=== PATIENT | male | born 1980 | race Caucasian/White ===

== ENCOUNTER 2017-12-09 23:38 | Emergency (ER) | payer OTHER ==
[~2017-12-09] VITALS: Ht 172.7 cm; Wt 89.8 kg
[~2017-12-09 23:38] MED LIST: ACHD5005 PO; CEPH500C PO; HYDR-1231 PO; NAPR-243 PO; PRD20T PO
--- OUTSIDE RECORDS SUMMARY | 2017-12-09 23:46 | XMS REPORT ---
Author Author GLORIA LOVELACE [facility] Address Unknown Care Team Providers Care Scientific Associate Name Role Phone [place] GLORIA Unavailable PROBLEMS Type Condition ICD9-CM Code [id number] Code Onset Dates Condition Status SNOMED Code Problem Pityriasis versicolor 111.0 Active [id number] ALLERGIES No Known Allergies SOCIAL HISTORY Never Assessed PLAN OF CARE Activity Details Follow Up 1 Week Reason:#19-te VITAL SIGNS Height 68 in 2016-04-28 Blood pressure systolic 152 mmHg 2016-04-28 Blood pressure diastolic 105 mmHg 2016-04-28 MEDICATIONS Medication Instructions Dosage Frequency Start Date End Date Duration Status Amoxicillin 500 MG Orally three times a day 1 tablet 8h Apr, Apr, 7 days Active RESULTS No Results PROCEDURES Procedure Date Ordered Result Body Site LTD ORAL EVALUATION - PROBLEM FOCUS Apr 28, 2016 INTRAORL-PERIAPICAL 1 FILM [id number] Apr 28, 2016 IMMUNIZATIONS No Known Immunizations MEDICAL (GENERAL) HISTORY Type Description Date Medical History bronchitis Medical History Seizures Medical History Ulcers Medical History Blood transfusion Medical History thyroid problems
--- OUTSIDE RECORDS SUMMARY | 2017-12-09 23:46 | XMS REPORT | Continuity of Care Document ---
Author Author [facility] Organization [facility] Address Unknown Phone Unavailable Care Team Providers Care Periodontist Name Role Phone [facility] OF Insurance Providers Payer Name Policy Number Subscriber Name Relationship Self Pay Jeremy Reilly 01 Self / Same As Patient Advance Directives Directive Response Recorded Date Advance Directives N 12/16/12 9:49pm Organ Donor Y 12/16/12 9:49pm Problems No Known Problems or Medical conditions. Social History History Response Recorded Date/Time Alcohol Use Denies Use 12/16/12 9:49pm Recreational Drug Use N 12/16/12 9:49pm Allergies, Adverse Reactions, Alerts Allergen Type Severity Reaction Last Updated NKANo Known Allergies Allergy Unknown 02/20/06 Medications Medication Dose Units Route Sig Qty Days Prednisone 40 Mg PO BID 4 Response Recorded Date/Time Status not known Unknown Results No Known Relevant Diagnostic Tests, Laboratory Data and/or Discharge Summary. Procedures Procedure Code Date COLONOSCOPY 45.23 02/23/06 ESOPHAGOGASTRODUODENOSCOPY [EGD] W/CLOSED BIOPSY 45.16 02/21/06 UPPER GI ENDOSCOPY BIOPSY [id number] 03/09/06 Encounters Encounter Location Date/Time Departed Emergency Room [facility] 08/23 9:42pm Discharged Inpatient [facility] 12: 00am
--- OUTSIDE RECORDS SUMMARY | 2017-12-09 23:46 | XMS REPORT | Continuity of Care Document ---
Author Author [facility] Organization [facility] Address Unknown Phone Unavailable Care Team Providers Care Sales Officer Name Role Phone [facility] OF Insurance Providers Payer Name Policy Number Subscriber Name Relationship Self Pay Jeremy Reilly 01 Self / Same As Patient Advance Directives Directive Response Recorded Date Advance Directives N 08/23/12 11:11pm Problems No Known Problems or Medical conditions. Social History History Response Recorded Date/Time Alcohol Use Denies Use 08/23/12 11:11pm Recreational Drug Use N 08/23/12 11:11pm Allergies, Adverse Reactions, Alerts Allergen Type Severity Reaction Last Updated NKANo Known Allergies Allergy Unknown 02/20/06 Medications Medication Dose Units Route Sig Qty Days Naproxen (Naprosyn) 1 Each PO BID PRN 20 Hydrocodone Bit/Acetaminophen (Hydrocodon-Acetaminophen 5-325) 1 - 2 Each PO Q6H PRN 20 Response Recorded Date/Time Status not known Unknown Results No Known Relevant Diagnostic Tests, Laboratory Data and/or Discharge Summary. Procedures Procedure Code Date COLONOSCOPY 45.23 02/23/06 ESOPHAGOGASTRODUODENOSCOPY [EGD] W/CLOSED BIOPSY 45.16 02/21/06 UPPER GI ENDOSCOPY BIOPSY [id number] 03/09/06 Encounters Encounter Location Date/Time Departed Emergency Room [facility] 11:01pm Discharged Inpatient [facility] 12: 00am
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
--- NOTE | 2017-12-10 01:39 | ED Lower Extremity ---
General Stated Complaint: LEFT FOOT PAIN Source: patient Exam Limitations: no limitations History of Present Illness Date Seen by Provider: Dec 10, 2017 Time Seen by Provider: 01:25 Initial Comments PT ARRIVES VIA POV C/O LEFT FOOT INJURY STATES HE WAS LOADING METAL DRUMS ( WEIGHING APPROXIMATELY 50 LBS ) ONTO A TRUCK AND ONE ROLLED OFF THE BACK OF THE TRUCK HE WAS LOADING IT, AND LANDED ON HIS LEFT FOOT/ANKLE AREA OCCURRED Monday AROUND 10:30 AM. 12/08/17--WORKS AT [employer] REPORTED TO PLANNER AT THE TIME, BUT DID NOT SEEK CARE UNTIL TONIGHT. STATES IT DID NOT HURT TOO BAD "UNTIL IT GOT TO WHERE I CAN'T WALK" ( PT AMBULATED INTO ER AND BACK INTO ROOM ON HIS OWN) NO PARESTHESIAS OR MOTOR DEFICITS NO PRIOR INJURY TO THIS FOOT PCP: LISA Allergies and Home Medications Allergies Coded Allergies: NKANo Known Allergies (Verified Allergy, Unknown, 02/20/06) Home Medications Naproxen 500 Mg Tablet, 500 MG PO BID Prescribed by: JAYY STEELE on 12/10/17 0201 Patient Home Medication List Home Medication List Reviewed: Yes Review of Systems Constitutional: no symptoms reported Musculoskeletal: see HPI Skin: no symptoms reported Psychiatric/Neurological: No Symptoms Reported Past Meuwnok-Joltnd-Nrdynu Hx Patient Social History Alcohol Use: Occasionally Uses Recreational Drug Use: No Smoking Status: Current Everyday Smoker Type Used: Cigarettes Recent Foreign Travel: No Contact w/Someone Who Travel: No Recent Hopitalizations: No Immunizations Up To Date Tetanus Booster (TDap): More than 5yrs Seasonal Allergies Seasonal Allergies: No Past Medical History Surgeries: No Respiratory: No Cardiac: No Neurological: No Genitourinary: No Gastrointestinal: No Musculoskeletal: Yes Arthritis, Chronic Back Pain HEENT: No Cancer: No Psychosocial: No Integumentary: No Blood Disorders: No Adverse Reaction/Blood Tranf: No Family Medical History No Pertinent Family Hx Physical Exam Vital Signs Vital Signs - First Documented 12/10/17 12/10/17 01:23 02:22 Temp 96.7 Pulse 67 Resp 17 B/P (MAP) 140/92 (108) Pulse Ox 97 O2 Delivery Room Air Capillary Refill : Height, Weight, BMI Height: 5'8" Weight: 198lbs. oz. 89.126531mk; 30.10 BMI Method:Stated General Appearance: WD/WN, no apparent distress, other (AMBULATES IN ON OWN ) Legs: left leg normal inspection Knees: left knee normal inspection Ankles: left ankle other (MILD TENDERNESS TO ANTERIOR ASPECT OF LEFT ANKLE) Feet: left foot bone tenderness (TENDERESS TO TOP OF FOOT), left foot ecchymosis ([place] TO TOP OF FOOT), left foot limited range of motion, left foot pain, left foot soft tissue tenderness, left foot swelling (MILD SWELLING TO TOP OF FOOT), left foot other Neurologic/Tendon: normal sensation, normal motor functions, normal tendon functions Neurologic/Psychiatric: credit underwriter II-XII nml as tested, no motor/sensory deficits, alert, normal mood/affect, oriented x 3 Skin: normal color, warm/dry Procedures/Interventions Suture Size: 5-0 Splinting and Joint Reduction : Rashel wrap: Yes Splints: Post Op Shoe Progress/Results/Core Measures Results/Orders My Orders Orders - JAYY STEELE DO Foot, Left, 3 Views (12/10/17 01:28) Ankle, Left, 3 Views (12/10/17 01:28) Post-Op Shoe (12/10/17 01:58) Rx-Naproxen (Rx-Naprosyn) (12/10/17 01:58) Rashel Bandage (12/10/17 02:19) Rx-Naproxen (Rx-Naprosyn) (12/10/17 02:11) Vital Signs/I&O 12/10/17 12/10/17 01:23 02:22 Temp 96.7 96.7 Pulse 67 68 Resp 17 17 B/P (MAP) 140/92 (108) 140/90 Pulse Ox 97 O2 Delivery Room Air Room Air Comment XRAYS LEFT FOOT AND ANKLE--NO ACUTE BONY INJURY, PENDING RADIOLOGIST REVIEW Departure Impression Primary Impression: Contusion of left foot Disposition: HOME, SELF-CARE Condition: Stable Departure-Patient Inst. Referrals: [facility] (PCP/Family) Primary Care Physician Patient Instructions: Contusion (DC) Add. Discharge Instructions: WEAR POST OP SHOE NEEDED FOR PAIN ICE TO AREA AT 20 MINUTE INTERVALS ELEVATE FOOT MUCH POSSIBLE FOLLOW UP WITH OCCUPATIONAL HEALTH ON MONDAY FOR FURTHER CARE Scripts Naproxen (Naproxen) 500 Mg Tablet 500 MG PO BID, #20 TAB Prov: JAYY STEELE DO 12/10/17 Images Extremities-Lower 1 - Mild, Swelling, Tenderness, Other-See Progress Note Progress SMALL AREA OF FAINT BRUISING TO TOP OF LEFT FOOT JAYY STEELE DO Dec 10, 2017 01:39
[2017-12-10] MEDS ORDERED: RX-NAPROXEN (NAPROSYN) 250 MG TAB PPK#4 PO STA (01:58)
[2017-12-10] MEDS ORDERED: NAPR-915 PO (02:01)
[2017-12-10] MEDS ORDERED: RX-NAPROXEN (NAPROSYN) 250 MG TAB PPK#4 PO ONE (02:11)
[2017-12-10 02:22] VITALS: BP 140/90
--- NOTE | 2017-12-10 07:25 | Diagnostic Imaging Report ---
INDICATION: Pain. 3 views of left ankle were obtained. FINDINGS: The alignment is normal. The plafonds and talar dome are intact. Ankle mortise is symmetric. There is no fracture or dislocation. Soft tissues are unremarkable. IMPRESSION: No focal abnormality in the left ankle. Dictated by: Dictated on workstation # [id number]
--- NOTE | 2017-12-10 07:26 | Diagnostic Imaging Report ---
Indication: Pain. Three views were obtained. Findings: The alignment is normal. There is fracture or dislocation. Soft tissues are unremarkable. Impression: No acute fracture or dislocation. Dictated by: Dictated on workstation # [id number]
== END 2017-12-10 02:24 | disposition home or self-care (01) ==
LOC: EDUNIT# 23:38 → ER 23:40
DX: S90.32XA Contusion of left foot, initial encounter (principal); F17.210 Nicotine dependence, cigarettes, uncomplicated; W22.09XA Striking against other stationary object, initial encounter; Y92.59 Other trade areas as the place of occurrence of the external cause; Y99.0 Civilian activity done for income or pay
CPT/HCPCS: 73610; 73630

== ENCOUNTER 2019-02-18 22:42 | Emergency (ER) | payer SELFPAY ==
[~2019-02-18] VITALS: Ht 172.2 cm; Wt 93.0 kg
[~2019-02-18 22:42] MED LIST changes: +NAPR-915 PO
--- NOTE | 2019-02-19 00:59 | NUR ---
Received report from AIRAM Gavin at this time to assume care of pt.
[2019-02-19] MEDS ORDERED: AMOX500C2 PO (01:05)
--- NOTE | 2019-02-19 01:08 | ED EENT ---
History of Present Illness General Chief Complaint: Dental Problems/Pain Stated Complaint: POSS RT SIDE DENTAL PAIN Nursing Triage Note: PT AMBULATE TO [facility] WITH C/O RIGHT SIDED DENTAL PAIN X1 WEEK. PT REPORTS THAT IT IS "THROWING MY EQUILIBRIUM OFF". Source: patient Exam Limitations: no limitations History of Present Illness Date Seen by Provider: Feb 19, 2019 Time Seen by Provider: 00:54 Initial Comments This 38-year-old man presents to the emergency room with complaints of pain in the right maxilla shooting down toward his neck and toward the right ear he believes this is coming from his teeth. He denies any fever. He has not taken any medications for this and has not seen the dentist. Pain is been present for a week and is escalating. Allergies and Home Medications Allergies Coded Allergies: JOSEANo Known Allergies (Verified Allergy, Unknown, 02/20/06) Home Medications Amoxicillin 500 Mg Capsule, 1,000 MG PO BID Prescribed by: SAI TAPIA on 02/19/19 0105 Naproxen 500 Mg Tablet, 500 MG PO BID Prescribed by: JAYY STEELE on 12/10/17 0201 Patient Home Medication List Home Medication List Reviewed: Yes Review of Systems Review of Systems Constitutional: no symptoms reported Eyes: No Symptoms Reported Ears: No Symptoms Reported Nose: no symptoms reported Mouth: see HPI Throat: no symptoms reported Respiratory: no symptoms reported Cardiovascular: no symptoms reported Gastrointestinal: no symptoms reported Musculoskeletal: no symptoms reported Skin: no symptoms reported Neurological: No Symptoms Reported Past Iwxglap-Lmknfn-Jnzgda Hx Past Med/Social Hx: Reviewed Nursing Past Med/Soc Hx Patient Social History Alcohol Use: Denies Use Recreational Drug Use: No Smoking Status: Former Smoker Type Used: Cigarettes Former Smoker, Quit: Feb 05, 2019 2nd Hand Smoke Exposure: No Recent Foreign Travel: No Contact w/Someone Who Travel: No Recent Infectious Disease Expo: No Recent Hopitalizations: No Physical Abuse: No Sexual Abuse: No Mistreated: No Fear: No Immunizations Up To Date Tetanus Booster (TDap): Less than 5yrs Seasonal Allergies Seasonal Allergies: No Past Medical History Surgeries: Yes Abdominal (EGD and colonoscopy) Respiratory: No Cardiac: No Neurological: No Genitourinary: No Gastrointestinal: Yes Ulcer Musculoskeletal: Yes Arthritis, Chronic Back Pain Endocrine: No HEENT: No Cancer: No Psychosocial: No Integumentary: No Blood Disorders: No Adverse Reaction/Blood Tranf: No Family Medical History No Pertinent Family Hx Physical Exam Vital Signs Vital Signs - First Documented 02/18/19 02/19/19 23:16 01:20 Temp 36.9 Pulse 80 Resp 18 B/P (MAP) 183/96 (125) Pulse Ox 100 O2 Delivery Room Air Height, Weight, BMI Height: 5'8" Weight: 198lbs. oz. 89.695936ls; 31.00 BMI Method:Stated General Appearance: WD/WN, mild distress Eyes: bilateral eye normal inspection, bilateral eye PERRL, bilateral eye EOMI Ears: bilateral ear auricle normal, bilateral ear canal normal, bilateral ear TM normal Nose: normal inspection Mouth/Throat: pharynx normal, other (numerous severely decayed teeth. No overt inflammatory process or abscess.) Neck: normal inspection Cardiovascular: regular rate, rhythm, no edema, no murmur Respiratory: lungs clear, normal breath sounds, no respiratory distress Neurologic/Psychiatric: barrel raiser II-XII nml as tested, no motor/sensory deficits, alert, normal mood/affect, oriented x 3 Skin: normal color, warm/dry Procedures/Interventions Suture Size: 5-0 Progress/Results/Core Measures Results/Orders My Orders Orders - SAI HARVEY MD Amoxicillin Capsule (Polymox Capsule) (02/19/19 01:15) Vital Signs/I&O Blood Pressure Mean: 125 POS Progress Progress Note : Progress Note Patient was started on amoxicillin in the emergency room. Since he has not yet tried any medications, he was advised to start with ougs-bti-brnzjeh ibuprofen and Tylenol. See discharge instructions. Departure Impression Primary Impression: Dental decay Additional Impression: Pain, dental Disposition: HOME, SELF-CARE Condition: Stable Departure-Patient Inst. Decision time for Depature: 01:03 Referrals: [facility] (PCP/Family) Primary Care Physician Patient Instructions: Dental Pain, Tooth Decay, Adult (DC) Add. Discharge Instructions: Complete your antibiotics as prescribed and see a dentist as soon as possible. You may take ibuprofen up to 600 mg every 6 hours as needed and/or Tylenol (acetaminophen) up to 1000 mg every 6 hours as needed. [place] your teeth gently with a soft bristle toothbrush at least twice daily. If tolerated, also rinse with antiseptic mouthwash. Return to care if you have worsening symptoms or develop new symptoms such as fever. All discharge instructions reviewed with patient and/or family. Voiced understanding. Scripts Amoxicillin (Amoxicillin) 500 Mg Capsule 1000 MG PO BID, #40 CAP 0 Refills Prov: SAI HARVEY MD 02/19/19 SAI HARVEY MD Feb 19, 2019 01:08 POS
[2019-02-19] MEDS ORDERED: AMOXICILLIN 500 MG (POLYMOX) CAP PO ONE (01:15)
[2019-02-19 01:20] VITALS: BP 183/96
== END 2019-02-19 01:27 | disposition home or self-care (01) ==
LOC: EDUNIT# 22:42 → ER 22:45
DX: K02.9 Dental caries, unspecified (principal); Z87.891 Personal history of nicotine dependence
CPT/HCPCS: 99283

== ENCOUNTER 2019-03-03 09:27 | Emergency (ER) | payer SELFPAY ==
[~2019-03-03] VITALS: Ht 172.7 cm; Wt 90.7 kg
[~2019-03-03 09:27] MED LIST changes: +AMOX500C2 PO
--- NOTE | 2019-03-03 09:40 | ED Upper Extremity ---
General Chief Complaint: Upper Extremity Stated Complaint: L HAND INJ/SWELLING Source: patient Exam Limitations: no limitations History of Present Illness Date Seen by Provider: Mar 03, 2019 Time Seen by Provider: 09:26 Initial Comments Patient is a pleasant left-handed gentleman who presents to ER by private conveyance because of swelling and pain and limited mobility in his left hand. Approximate 1700 yesterday about 16 hours ago he was working on a vehicle in his left hand slipped off a tool hitting the dorsum of his hand against the fender well. He denies any numbness tingling weakness or previous fracture/surgery. No diabetes or blood thinners. No pain meds or ice. Allergies and Home Medications Allergies Coded Allergies: JOSEANo Known Allergies (Verified Allergy, Unknown, 02/20/06) Home Medications Amoxicillin 500 Mg Capsule, 1,000 MG PO BID Prescribed by: SAI TAPIA on 02/19/19 0105 Naproxen 500 Mg Tablet, 500 MG PO BID Prescribed by: JAYY STEELE on 12/10/17 0201 Patient Home Medication List Home Medication List Reviewed: Yes Review of Systems Constitutional: No chills, No diaphoresis EENTM: No ear discharge, No ear pain, No blurred vision Respiratory: No cough, No short of breath Cardiovascular: No chest pain, No edema Gastrointestinal: No abdominal pain, No nausea, No vomiting Genitourinary: No discharge, No dysuria Musculoskeletal: see HPI Skin: see HPI Psychiatric/Neurological: Denies Anxiety, Denies Depressed Past Yvommgq-Uuoxwg-Slujen Hx Patient Social History Alcohol Use: Denies Use Recreational Drug Use: No Smoking Status: Former Smoker Type Used: Cigarettes Former Smoker, Quit: Feb 05, 2019 2nd Hand Smoke Exposure: No Recent Foreign Travel: No Contact w/Someone Who Travel: No Recent Hopitalizations: No Immunizations Up To Date Tetanus Booster (TDap): Less than 5yrs Seasonal Allergies Seasonal Allergies: No Past Medical History Surgeries: Yes Abdominal Respiratory: No Cardiac: No Neurological: No Genitourinary: No Gastrointestinal: Yes Ulcer Musculoskeletal: Yes Arthritis, Chronic Back Pain Endocrine: No HEENT: No Cancer: No Psychosocial: No Integumentary: No Blood Disorders: No Adverse Reaction/Blood Tranf: No Family Medical History No Pertinent Family Hx Physical Exam Vital Signs Vital Signs - First Documented 03/03/19 09:35 Temp 36.5 Pulse 68 B/P (MAP) 147/104 (118) O2 Delivery Room Air Capillary Refill : Height, Weight, BMI Height: 5'8" Weight: 198lbs. oz. 89.678937kl; 31.00 BMI Method:Stated General Appearance: WD/WN, no apparent distress Cardiovascular: normal peripheral pulses, regular rate, rhythm Respiratory: no respiratory distress, no accessory muscle use Wrist: Yes normal inspection, Yes non-tender, Yes no evidence of injury, Yes normal ROM Hand: Left, bone tenderness (third metacarpal and third digit proximal phalanx), limited ROM (lacks about 15% of the flexion), soft tissue tenderness, swelling (moderate dorsum of the hand over the third metacarpal) Neurologic/Tendon: normal sensation, normal motor functions, normal tendon functions Neurologic/Psychiatric: alert, normal mood/affect Procedures/Interventions Suture Size: 5-0 Progress/Results/Core Measures Results/Orders My Orders Orders - YULI POSEY Hand, Left, 3 Views (03/03/19 09:36) Vital Signs/I&O 03/03/19 09:35 Temp 36.5 Pulse 68 B/P (MAP) 147/104 (118) O2 Delivery Room Air Progress Progress Note : Time: 09:40 Progress Note He has declined anything for pain this time. Ice pack and compression. X-ray of the left hand 3 view. Diagnostic Imaging Diagonstic Imaging: Xray Plain Films/CT/US/NM/MRI: hand (Left) Comments NAME: SIA REILLY MED REC#: [id number] PT STATUS: REG ER : 1980 PHYSICIAN: YULI POSEY MD ADMIT DATE: 03/03/19/ER Draft Date of Exam:03/03/19 HAND, LEFT, 3 VIEWS Left hand at 949 hours. INDICATION: Injury, hand pain. 3 views were obtained. FINDINGS: There is no fracture, dislocation or acute bony abnormality evident. The soft tissues are unremarkable. There is no sign of a radiopaque foreign body. IMPRESSION: There is no evidence for an acute bony abnormality or for a radiopaque foreign body. Dictated on workstation # [id number] Dict: 03/03/19 0956 Trans: 03/03/[address] [place] [address] [id number] Interpreted by: CRISTAL SHERWOOD MD Electronically signed by: Reviewed: Reviewed by Me Departure Impression Primary Impression: Contusion of hand Qualified Codes: S60.222A - Contusion of left hand, initial encounter Disposition: 01 HOME, SELF-CARE Condition: Stable Departure-Patient Inst. Decision time for Depature: 10:05 Referrals: [facility] (PCP/Family) Primary Care Physician Patient Instructions: Contusion (DC) Add. Discharge Instructions: Contusion to your hands just a large bruise and soft-tissue injury which should resolve on its own over the next 1-2 weeks. An ice pack for the first 2-3 days applied every 4 hours for 20 minutes can be helpful. Wrap your hand with an Rashel bandage for compression to help keep the swelling and pain down. Tylenol and ibuprofen as necessary for pain. If you're still having significant pain or difficulty moving your hand in 7-10 days then you need to follow-up with the primary care doctor for reevaluation and for possible missed fractures. All discharge instructions reviewed with patient and/or family. Voiced understanding. YULI POSEY Mar 03, 2019 09:40
--- NOTE | 2019-03-03 10:04 | Diagnostic Imaging Report ---
Left hand at 949 hours. INDICATION: Injury, hand pain. 3 views were obtained. FINDINGS: There is no fracture, dislocation or acute bony abnormality evident. The soft tissues are unremarkable. There is no sign of a radiopaque foreign body. IMPRESSION: There is no evidence for an acute bony abnormality or for a radiopaque foreign body. Dictated by: Dictated on workstation # [id number]
[2019-03-03 10:15] VITALS: BP 142/90
== END 2019-03-03 10:15 | disposition home or self-care (01) ==
LOC: EDUNIT# 09:27 → ER 09:28
DX: S60.222A Contusion of left hand, initial encounter (principal); Z87.891 Personal history of nicotine dependence; W22.8XXA Striking against or struck by other objects, initial encounter
CPT/HCPCS: 73130

== ENCOUNTER 2020-05-19 15:43 | Emergency (ER) | payer OTHER ==
[~2020-05-19] VITALS: Ht 172 cm; Wt 97.5 kg
[2020-05-19] MEDS ORDERED: TETANUS,DIPTH,PERTUSS P/F (BOOSTRIX) 0.5 ML VIAL IM ONE (16:00)
[2020-05-19 16:11] LABS: ALBUMIN 4.6 GM/DL (3.2-4.5); CHLORIDE 104 MMOL/L (98-107); POTASSIUM 4.1 MMOL/L (3.6-5.0); SODIUM 136 MMOL/L (135-145)
[2020-05-19 16:12] LABS: CALCIUM 9.1 MG/DL (8.5-10.1)
[2020-05-19 16:14] LABS: GLUCOSE 92 MG/DL (70-105); TOTAL PROTEIN 7.8 GM/DL (6.4-8.2)
[2020-05-19 16:15] LABS: BILIRUBIN,TOTAL 0.6 MG/DL (0.1-1.0); CARBON DIOXIDE 21 MMOL/L (21-32)
[2020-05-19 16:17] LABS: ALKALINE PHOSPHATASE 78 U/L (40-136); CREATININE SERUM 0.86 MG/DL (0.60-1.30); GFR ESTIMATED > 60
[2020-05-19 16:18] LABS: BUN/CREATININE RATIO 15
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
[2020-05-19 16:19] LABS: BILIRUBIN,DIRECT 0.2 MG/DL (0.0-0.3); BILIRUBIN,INDIRECT 0.4 MG/DL
[2020-05-19 16:20] LABS: ALANINE AMINOTRANSFERASE 45 U/L (0-55)
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
[2020-05-19] MEDS ORDERED: NS IV 500 ML 500 ML ONE (16:39)
[2020-05-19] MEDS ORDERED: NS IV 500 ML 500 ML IV ONE (16:45)
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
[2020-05-19 17:20] LABS: HEMOGLOBIN 16.9 g/dL (13.3-17.7); MEAN PLATELET VOLUME 11.8 fL (9.0-12.2); WHITE BLOOD COUNT 13.7 10^3/uL (4.3-11.0)
[2020-05-19 17:45] VITALS: BP 115/65
== END 2020-05-19 17:45 | disposition home or self-care (01) ==
LOC: EDUNIT# 15:43 → ER 15:45
DX: S20.212A Contusion of left front wall of thorax, initial encounter (principal); S00.81XA Abrasion of other part of head, initial encounter; S30.811A Abrasion of abdominal wall, initial encounter; S80.212A Abrasion, left knee, initial encounter; R40.2250 Coma scale, best verbal response, oriented, unspecified time; R40.2140 Coma scale, eyes open, spontaneous, unspecified time; R40.2360 Coma scale, best motor response, obeys commands, unspecified time; F17.210 Nicotine dependence, cigarettes, uncomplicated; Z23 Encounter for immunization; V85.5XXA Driver of special construction vehicle injured in nontraffic accident, initial encounter
CPT/HCPCS: 71045; 71260; 73562; 74177; 80048; 80076; 85027; 86850; 86900; 86901; 93041; G0480; 36415; 80320; 90715

== ENCOUNTER 2020-09-03 23:26 | Emergency (ER) | payer SELFPAY ==
[~2020-09-03] VITALS: Ht 173 cm; Wt 97.5 kg
[2020-09-03 23:35] VITALS: BP 143/93
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
== END 2020-09-04 00:55 | disposition home or self-care (01) ==
LOC: EDUNIT# 23:26 → ER 23:30
DX: S90.32XA Contusion of left foot, initial encounter (principal); I10 Essential (primary) hypertension; F17.210 Nicotine dependence, cigarettes, uncomplicated; V03.00XA Pedestrian on foot injured in collision with car, pick-up truck or van in nontraffic accident, initial encounter
CPT/HCPCS: 73630

== ENCOUNTER 2020-09-10 20:23 | Emergency (ER) | payer SELFPAY ==
[~2020-09-10] VITALS: Ht 177 cm; Wt 104.0 kg
--- NOTE | 2020-09-10 21:19 | ED GI ---
General Chief Complaint: Abdominal/GI Problems Stated Complaint: VOMMITTING BLOOD Source of Information: Patient Exam Limitations: No Limitations History of Present Illness Date Seen by Provider: Sep 10, 2020 Time Seen by Provider: 21:04 Initial Comments Patient is a 40-year-old male who presents to the emergency department today with a chief complaint of one episode of vomiting blood. Patient states that he was helping his son work on his truck and was under the truck for about 3 hours when he got up to go inside and all of a sudden became nauseous and vomited. Patient states there was stringy bits of blood in his vomit. His sought and sent him to the emergency room for evaluation. Patient states that he has a little bit of left upper quadrant abdominal discomfort. No discrete pain. No other episodes of vomiting blood recently. He did have an episode yesterday where he got to coughing and had some vomiting. No blood reported there. Does not complain of feeling lightheaded or dizzy or ongoing nausea. No recent black or bloody stools. Patient states that he has a history of ulcers 13 or 14 years ago and was on a PPI it sounds like for about a year afterwards. [facility]. He is not on blood thinners and does not use ibuprofen or other NSAIDs. Patient has been recently taking some amoxicillin that he had at home for an abscessed tooth. Patient later thinks that when he looked at the abscessed tooth in the mirror that potentially the blood could have come from there. All other review of systems reviewed and negative except as stated above. Timing/Duration: 1-3 Hours Severity/Quality: Mild Location: [facility] Radiation: No Radiation Activities at Onset: Activity Associated Symptoms: Denies Symptoms Allergies and Home Medications Allergies Coded Allergies: NKANo Known Allergies (Verified Allergy, Unknown, 02/20/06) Home Medications Amoxicillin 500 Mg Capsule, 1,000 MG PO BID Prescribed by: SAI TAPIA on 02/19/19 0105 Naproxen 500 Mg Tablet, 500 MG PO BID Prescribed by: JAYY STEELE on 12/10/17 0201 Patient Home Medication List Home Medication List Reviewed: Yes Review of Systems Review of Systems Constitutional: see HPI EENTM: No Symptoms Reported Respiratory: No Symptoms Reported Cardiovascular: No Symptoms Reported Gastrointestinal: Denies Blood Streaked Stools; Other (Vomiting blood) Genitourinary: No Symptoms Reported Musculoskeletal: no symptoms reported Skin: no symptoms reported All Other Systems Reviewed Negative Unless Noted: Yes Past Tepuczx-Bkvqew-Sayjpz Hx Immunizations Up To Date Tetanus Booster (TDap): Less than 5yrs Seasonal Allergies Seasonal Allergies: No Past Medical History Surgeries: Yes (EGD/COLONOSCOPY) Abdominal Respiratory: No Cardiac: Yes Hypertension Neurological: No Genitourinary: No Gastrointestinal: Yes Ulcer Musculoskeletal: Yes Arthritis, Chronic Back Pain Endocrine: No HEENT: No Cancer: No Psychosocial: No Integumentary: No Blood Disorders: No Adverse Reaction/Blood Tranf: No Family Medical History No Pertinent Family Hx Physical Exam Vital Signs Vital Signs - First Documented 09/10/20 20:41 Temp 38.1 Pulse 112 Resp 18 B/P (MAP) 142/97 (112) Pulse Ox 94 O2 Delivery Room Air Capillary Refill : Height/Weight/BMI Height: 5'8" Weight: 198lbs. oz. 89.449953sg; 32.00 BMI Method:Stated General Appearance: WD/WN, no apparent distress HEENT: normal ENT inspection, other (Left lower jaw premolar with fractured tooth and surrounding gingival edema. No obvious drainage or bleeding is noted) Neck: full range of motion Respiratory: lungs clear, normal breath sounds, no respiratory distress, no accessory muscle use Cardiovascular: regular rate, rhythm, tachycardia (105) Gastrointestinal: normal bowel sounds, soft, no organomegaly, tenderness (Minimal left upper quadrant tenderness to palpation) Extremities: normal range of motion, non-tender, normal inspection, no pedal edema Neurologic/Psychiatric: alert, normal mood/affect, oriented x 3 Skin: normal color, warm/dry Procedures/Interventions Suture Size: 5-0 Progress/Results/Core Measures Results/Orders Lab Results Laboratory Tests Test 09/10/20 20:54 Range/Units White Blood Count 9.1 4.3-11.0 10^3/uL Red Blood Count 5.37 4.30-5.52 10^6/uL Hemoglobin 16.0 13.3-17.7 g/dL Hematocrit 49 40-54 % Mean Corpuscular Volume 90 80-99 fL Mean Corpuscular Hemoglobin 30 25-34 pg Mean Corpuscular Hemoglobin Concent 33 32-36 g/dL Red Cell Distribution Width 13.2 10.0-14.5 % Platelet Count 192 130-400 10^3/uL Mean Platelet Volume 11.4 9.0-12.2 fL Immature Granulocyte % (Auto) 0 % Neutrophils (%) (Auto) 80 H 42-75 % Lymphocytes (%) (Auto) 12 12-44 % Monocytes (%) (Auto) 6 0-12 % Eosinophils (%) (Auto) 1 0-10 % Basophils (%) (Auto) 1 0-10 % Neutrophils # (Auto) 7.2 1.8-7.8 10^3/uL Lymphocytes # (Auto) 1.1 1.0-4.0 10^3/uL Monocytes # (Auto) 0.6 0.0-1.0 10^3/uL Eosinophils # (Auto) 0.1 0.0-0.3 10^3/uL Basophils # (Auto) 0.1 0.0-0.1 10^3/uL Immature Granulocyte # (Auto) 0.0 0.0-0.1 10^3/uL Sodium Level 137 135-145 MMOL/L Potassium Level 4.0 3.6-5.0 MMOL/L Chloride Level 104 98-107 MMOL/L Carbon Dioxide Level 23 21-32 MMOL/L Anion Gap 10 5-14 MMOL/L Blood Urea Nitrogen 9 7-18 MG/DL Creatinine 1.10 0.60-1.30 MG/DL Estimat Glomerular Filtration Rate > 60 BUN/Creatinine Ratio 8 Glucose Level 98 70-105 MG/DL Calcium Level 9.1 8.5-10.1 MG/DL My Orders Orders - TIO MENDEZ MD Cbc With Automated Diff (09/10/20 21:14) Basic Metabolic Panel (09/10/20 21:14) Vital Signs/I&O 09/10/20 20:41 Temp 38.1 Pulse 112 Resp 18 B/P (MAP) 142/97 (112) Pulse Ox 94 O2 Delivery Room Air Progress Progress Note : Time: 21:40 Progress Note Patient's labs reviewed and within normal limits. Hemoglobin is appropriate. BUN is normal. Patient clinically looks well. Counseled patient on follow-up and return precautions. Patient will continue to take his amoxicillin twice daily for 7 to 10 days. I have given the patient good return precautions. He verbalized understanding. All questions are sought and answered. Patient is stable for discharge. Departure Impression Primary Impression: Hematemesis Qualified Codes: K92.0 - Hematemesis Disposition: HOME, SELF-CARE Condition: Stable Departure-Patient Inst. Decision time for Depature: 21:41 Referrals: [facility] (PCP/Family) Primary Care Physician Patient Instructions: Gastrointestinal Bleeding (DC) Add. Discharge Instructions: Drink plenty of fluids to stay well-hydrated. If you have another episode of vomiting with blood, please come back to the emergency room for reevaluation. You can also follow-up with your primary care provider at [facility]. TIO MENDEZ MD Sep 10, 2020 21:19
[2020-09-10 21:29] LABS: BUN/CREATININE RATIO 8; CALCIUM 9.1 MG/DL (8.5-10.1); CARBON DIOXIDE 23 MMOL/L (21-32); CHLORIDE 104 MMOL/L (98-107); GFR ESTIMATED > 60; GLUCOSE 98 MG/DL (70-105); SODIUM 137 MMOL/L (135-145)
[2020-09-10 21:32] LABS: BASOPHILS # (AUTO) 0.1 10^3/uL (0.0-0.1); BASOPHILS % (AUTO) 1 % (0-10); EOSINOPHILS # (AUTO) 0.1 10^3/uL (0.0-0.3); EOSINOPHILS % (AUTO) 1 % (0-10); HEMATOCRIT 49 % (40-54); LYMPHOCYTES # (AUTO) 1.1 10^3/uL (1.0-4.0); LYMPHOCYTES % (AUTO) 12 % (12-44); MEAN CORPUSCULAR HEMOGLOBIN 30 pg (25-34); MEAN CORPUSCULAR HGB CONC 33 g/dL (32-36); MEAN CORPUSCULAR VOLUME 90 fL (80-99); MEAN PLATELET VOLUME 11.4 fL (9.0-12.2); MONOCYTES # (AUTO) 0.6 10^3/uL (0.0-1.0); MONOCYTES % (AUTO) 6 % (0-12); NEUTROPHILS # (AUTO) 7.2 10^3/uL (1.8-7.8); NEUTROPHILS % (AUTO) 80 % (42-75); PLATELET COUNT 192 10^3/uL (130-400); WHITE BLOOD COUNT 9.1 10^3/uL (4.3-11.0)
[2020-09-10 21:49] VITALS: BP 145/85
== END 2020-09-10 21:49 | disposition home or self-care (01) ==
LOC: EDUNIT# 20:23 → ER 20:26
DX: K92.0 Hematemesis (principal); I10 Essential (primary) hypertension
CPT/HCPCS: 36415; 80048; 85025

== ENCOUNTER → 2021-08-18 | Outpatient (CLI) | payer OTHER ==
[~2021-08-18] MED LIST changes: +RT-ALBUTEROL SULF 2.5 MG/3 ML PRE-MIX VIAL INH ONE
== END ==
LOC: RT 15:45
PROVIDERS: ATTEND Pediatrics
DX: R06.2 Wheezing (principal)
CPT/HCPCS: 94060; 94726; 94729